=== PATIENT | female | born 1955 | race Two or more races ===

== ENCOUNTER 2024-10-27 06:34 | Inpatient (IN) | payer OTHER ==
[2024-10-19 10:17] VITALS: BP 176/81
[~2024-10-27] VITALS: Ht 157.5 cm; Wt 72.6 kg
[~2024-10-27 06:34] MED LIST: TENORMIN25 MG PO
[2024-10-27] MEDS ORDERED: DEXAMETHASONE SODIUM PHOSPHATE 4 MG/ML VIAL ONE (08:32)
[2024-10-27] MEDS ORDERED: ENALAPRILAT DIHYDRATE 1.25 MG/ML VIAL IV PRN (16:30)
[2024-10-27] MEDS ORDERED: SODIUM CHLORIDE 0.45 % 1,000 ML IV SCH (16:30)
[2024-10-27] MEDS ORDERED: ONDANSETRON HCL 2 MG/ML VIAL IV PRN (16:30)
[2024-10-27] MEDS ORDERED: ACETAMINOPHEN 500 MG GEL..CAP PO SCH (17:00)
[2024-10-27] MEDS ORDERED: GABAPENTIN 100 MG CAPSULE PO SCH (17:00)
[2024-10-27] MEDS ORDERED: CYCLOBENZAPRINE HCL 5 MG TABLET PO SCH (17:00)
[2024-10-27 20:53] VITALS: BP 157/76; O2SAT 95
[2024-10-27] MEDS ORDERED: PANTOPRAZOLE SODIUM 40 MG/VIAL VIAL IV PUSH SCH (21:00)
[2024-10-28 00:27] VITALS: BP 127/75; O2SAT 96
[2024-10-28] MEDS ORDERED: ATENOLOL 25 MG TABLET PO SCH (09:00)
[2024-10-28 09:18] VITALS: BP 146/61; O2SAT 97
== END 2024-10-28 13:31 | disposition home or self-care (01) | DRG 627 ==
LOC: CIR.AMB 06:34 → EDSTATUS 10:15 → CIR.AMB 10:15 → SURG 10:15
PROVIDERS: ADMIT Surgery; ATTEND Surgery
PROC: 0GBM0ZZ Excision of Left Superior Parathyroid Gland, Open Approach (ICD-10-PCS; 2024-10-27)
PROC: 0GBN0ZZ Excision of Right Inferior Parathyroid Gland, Open Approach (ICD-10-PCS; 2024-10-27)
PROC: 0GBP0ZZ Excision of Left Inferior Parathyroid Gland, Open Approach (ICD-10-PCS; principal; 2024-10-27 09:30)
DX: E21.0 Primary hyperparathyroidism (principal)